=== PATIENT | male | born 1965 | race Caucasian/White ===

== ENCOUNTER → 2018-08-22 12:20 | Outpatient (CLI) | payer OTHER, MEDICAID, SELFPAY | PROVIDERS: Visit Provider Physician Assistant | DX: R68.89 Other general symptoms and signs (principal) | CPT/HCPCS: 87400 ==

== ENCOUNTER → 2020-09-22 12:46 | Outpatient (CLI) | payer OTHER, SELFPAY ==
[2020-09-22] MEDS: COVID-19 VACC #1, MRNA(MOD) 100 MCG/0.5 ML VIAL IM (12:57)
== END ==
PROVIDERS: Visit Provider Internal Medicine
DX: Z23 Encounter for immunization (principal)
CPT/HCPCS: 0011A; 91301

== ENCOUNTER → 2020-10-21 12:50 | Outpatient (CLI) | payer OTHER, SELFPAY ==
[2020-10-21] MEDS: COVID-19 VACC #2, MRNA(MOD) 100 MCG/0.5 ML VIAL IM (13:04)
== END ==
PROVIDERS: Visit Provider Internal Medicine
DX: Z23 Encounter for immunization (principal)
CPT/HCPCS: 0012A; 91301

== ENCOUNTER 2023-07-12 11:02 | Emergency (ER) | payer OTHER, SELFPAY ==
[2023-07-12] VITALS (12 sets, daily range): BP systolic 147–203; BP diastolic 92–127; PULSE 69–92; RESP 9–16; TEMP 36.9; O2SAT 97–99; BMI 30.9
--- NOTE | 2023-07-12 11:21 | DI.RAD.S_ITS ---
PROCEDURE: XR CHEST 1V INDICATIONS: chest pain TECHNIQUE: One view of the chest was acquired. COMPARISON: None. FINDINGS: Surgical changes and devices: None. Lungs and pleura: Lungs are clear. No pleural effusions or pneumothorax. Mediastinum: Mediastinal contours appear normal. Heart size is normal. Bones and chest wall: No suspicious bony lesions. Overlying soft tissues appear unremarkable. IMPRESSION: No acute cardiopulmonary abnormality is seen. Dictated by: Eugenie Fagan M.D. on 07/12/2023 at 11:50 Approved by: Eugenie Fagan M.D. on 07/12/2023 at 11:50
[2023-07-12 11:28] LABS: Add Manual Diff / Slide Review NO; Basophils Absolute Auto 0 /uL (0-100); Basophils Percent Auto 0.8 % (0-2); Eosinophils Absolute Auto 100 /uL (0-450); Eosinophils Percent Auto 1.1 % (2-4); Hematocrit 45.6 % (41-53); Hemoglobin 15.9 g/dL (13.5-17.5); Lymphocytes Absolute Auto 1100 /uL (1100-4500); Lymphocytes Percent Auto 19.9 % (25-40); Mean Corpuscular HGB Conc 34.8 % (30-36); Mean Corpuscular Hemoglobin 33.3 PG (26-34); Mean Corpuscular Volume 95.6 fL (80-100); Monocytes Absolute Auto 500 /uL (0-900); Monocytes Percent Auto 9.5 % (3-14); Neutrophils Absolute Auto 3700 /uL (1500-7000); Neutrophils Percent Auto 68.7 % (50-75); Platelet Count 238 X10^3/uL (150-400); Red Blood Cell Count 4.77 X10^6/uL (4.5-5.9); Red Cell Distribution Width 13.3 % (11.6-14.8); White Blood Cell Count 5.4 X10^3/uL (4.5-11.0)
[2023-07-12 11:35] LABS: Alanine Aminotransferase 31 IU/L (<50); Albumin 4.7 g/dL (3.5-5.0); Albumin Globulin Ratio 1.2 (1.0-2.8); Alkaline Phosphatase 83 U/L (38-126); Aspartate Aminotransferase 34 IU/L (17-59); BUN Creatinine Ratio 16.3 (6-22); Bilirubin Total 1.1 mg/dL (0.2-1.3); Blood Urea Nitrogen 14 mg/dL (9-20); Calcium 9.9 mg/dL (8.4-10.2); Carbon Dioxide 29 mmol/L (22-32); Chloride 101 mmol/L (98-107); Creatine Kinase 57 U/L (55-170); Estimated Glomerular Filt Rate > 60 mL/min (>60); Glucose 112 mg/dL (70-100); HEMOLYSIS < 15 (0-50); Lipase 121 U/L (23-300); Magnesium 2.1 mg/dL (1.6-2.3); Potassium 4.2 mmol/L (3.4-5.1); Sodium 137 mmol/L (137-145); Total Protein 8.7 g/dL (6.3-8.2)
[2023-07-12 11:36] LABS: Prothrombin Time 10.9 SECONDS (9.4-12.5)
[2023-07-12 11:39] LABS: PTT Partial Thromboplastin Tim 29 SECONDS (25.1-36.5)
[2023-07-12] MEDS: ASPIRIN 81 MG CHEW TAB 324 MG PO (11:39)
[2023-07-12 11:46] LABS: Troponin I < 0.012 ng/mL (0.01-0.034)
--- NOTE | 2023-07-12 11:51 | PC.NURSE ---
Pt reports he needs to establish care with PCP. Called down to [facility] and was able to secure f/u appt and appt to establish care with Dr Torres at 1300 at [facility] tomorrow 07/13/23.
--- NOTE | 2023-07-12 12:32 | ED_ITS ---
HPI - Chest Pain General Chief Complaint: Chest Pain Stated Complaint: High BP/arm pain/chest pain sent by walk in clinic Time Seen by Provider: 07/12/23 12:32 Source: patient, RN notes reviewed and old records reviewed Mode of arrival: Ambulatory Limitations: no limitations History of Present Illness HPI narrative: 58-year-old male with untreated hypertension daily alcohol use who presents with complaint of left-sided chest and arm discomfort occasionally. States he is felt fatigued over the last day. States symptoms have been in the last 24 hours sort of intermittent states it seems to be more exacerbated by stressful moments he does not notice any change with activity. He states he typically walks 3-6 miles a day most days. He states no diaphoresis no nausea, no shortness of breath, no new swelling of extremities, no numbness, tingling or weakness. No neck or back pain reported. No constipation or diarrhea in the last few days. Patient states no urinary symptoms. No swelling redness or other changes. He has been told he is hypertensive on multiple visits with his technical planner, he states it is always high on blood pressure checks they do in the office. He states he has been told that he did not have any changes in his eyes. He bought a blood pressure cuff for the 03 of July and has been checking his blood pressure regularly and has been ranging 130s to 170s but most consistently 130- 150 with a diastolic of 9200. Heart rates have been 60s to 80s. He does not take any daily medications has not seen a physician in several years. Has had a prior vasectomy. Quit smoking tobacco at least 10 years ago, 2-3 alcoholic drinks daily, no recreational drugs other than marijuana. Family history dad had a CABG and VT 1st episode was not age 77, paternal uncle from an VT in his 70s. He has a sister who has insulin-dependent diabetes and thyroid issues, his mom from complications from insulin-dependent diabetes. Patient has had a primary care appointment scheduled for tomorrow with Dr. Torres. Related Data Previous Rx's Medication Instructions Recorded lisinopril 20 mg tablet 20 mg PO DAILY #30 tabs 07/12/23 Allergies Allergy/AdvReac Type Severity Reaction Status Date / Time No Known Drug Allergies Allergy Verified 07/12/23 10:43 Review of Systems Review of Systems ROS Unobtainable: All systems reviewed & are unremarkable except as noted in HPI and below Patient History Medical History Allergic rhinitis (2009) Squamous cell carcinoma (2011) Chickenpox (1995) Measles Mumps History of skin cancer (2011) Neoplasm of uncertain behavior of skin Surgical History S/P vasectomy (1993) Family History Father Cancer Mother Diabetes mellitus Alzheimer's disease Grandmother Heart disease Stroke Hyperlipidemia Hypertension Grandmother Diabetes mellitus Heart disease Dementia Social History Smoking Status: Former smoker Smoking Status: Former smoker Exam Narrative Exam Narrative: GENERAL: Alert and oriented x three, well-appearing male in mild distress HEENT: Head normocephalic, atraumatic, EOMI, pupils reactive, face symmetric, moist mucous membranes NECK: Supple, full range of motion CARDIOVASCULAR: Regular rate and rhythm without murmurs, rubs or gallops. No reproducible chest pain. No swelling upper and lower extremities. RESPIRATORY: Breath sounds equal bilaterally, no wheezes rales or rhonchi. ABDOMEN: Soft, nontender. Normoactive bowel sounds all 4 quadrants. No guarding or rebound, rigidity, no mass : No CVA tenderness EXTREMITIES: Normal range of motion, no clubbing or edema. Neurovascularly intact. No color changes or swelling. NEUROLOGICAL: Cranial nerves II through XII grossly intact. Moving all extremities SKIN: Warm, dry, no petechiae, no rashes or lesions. Initial Vital Signs Initial Vital Signs: Vital Signs Pulse Oximetry 99 07/12/23 11:07 Scores HEART Score Heart Score history: Moderately Suspicious Heart Score EKG: Normal Heart Score Age: 45-64 years old Heart Score risk factors: 1-2 risk factors Heart Score troponin: < or = to normal limit Heart Score Total: 3 Course Orders Ordered: ED Orders 07/12/23 11:15 Complete Blood Count AUTO DIFF Stat Comprehensive Metabolic Panel Stat Lipase Stat Magnesium Stat PTT Partial Thromboplastin Harish Stat Prothrombin Time INR Stat Troponin & CK Cardiac Panel Stat 07/12/23 11:18 EKG-12 Lead Stat 07/12/23 11:21 XR chest 1V Stat 07/12/23 14:07 Trop I [Troponin I] Stat 07/12/23 14:27 EKG-12 Lead Stat Discontinued Medications Aspirin (Aspirin 81 Mg Chew Tab) 324 mg PO NOW ONE Stop: 07/12/23 11:22 Last Admin: 07/12/23 11:39 Dose: 324 mg Documented By: CHIP Vital Signs Vital signs: Vital Signs - 8 hr 07/12/23 11:07 07/12/23 11:08 07/12/23 11:08 Temperature Pulse Rate 90 Respiratory Rate Blood Pressure 203/127 H Pulse Oximetry 99 99 Oxygen Delivery Method 07/12/23 11:18 07/12/23 11:30 07/12/23 11:41 Temperature 98.5 F Pulse Rate 92 H 80 Respiratory Rate 16 Blood Pressure 203/127 H 166/96 H Pulse Oximetry 97 98 Oxygen Delivery Method Room Air 07/12/23 11:41 07/12/23 12:00 07/12/23 12:00 Temperature Pulse Rate 92 H 75 Respiratory Rate 10 L 10 L Blood Pressure 149/101 H Pulse Oximetry 97 97 Oxygen Delivery Method 07/12/23 12:30 07/12/23 12:30 07/12/23 13:00 Temperature Pulse Rate 75 Respiratory Rate 15 Blood Pressure 147/94 H 155/99 H Pulse Oximetry 98 Oxygen Delivery Method 07/12/23 13:00 07/12/23 13:30 07/12/23 13:30 Temperature Pulse Rate 69 75 Respiratory Rate 11 L Blood Pressure 157/92 H Pulse Oximetry 99 98 Oxygen Delivery Method 07/12/23 14:00 07/12/23 14:00 07/12/23 14:30 Temperature Pulse Rate 72 69 Respiratory Rate 15 9 L Blood Pressure 167/102 H Pulse Oximetry 98 98 Oxygen Delivery Method 07/12/23 14:30 07/12/23 15:00 07/12/23 15:00 Temperature Pulse Rate 74 Respiratory Rate 10 L Blood Pressure 167/93 H 164/93 H Pulse Oximetry 97 Oxygen Delivery Method MDM - Chest Pain Lab Data 07/12/23 11:15 07/12/23 11:15 Labs: Lab Results 07/12/23 07/12/23 Range/Units 11:15 14:07 WBC 5.4 (4.5-11.0) X10^3/uL RBC 4.77 (4.5-5.9) X10^6/uL Hgb 15.9 (13.5-17.5) g/dL Hct 45.6 (41-53) % MCV 95.6 (80-100) fL MCH 33.3 (26-34) PG MCHC 34.8 (30-36) % RDW 13.3 (11.6-14.8) % Plt Count 238 (150-400) X10^3/uL Neut % (Auto) 68.7 (50-75) % Lymph % (Auto) 19.9 L (25-40) % [place] % (Auto) 9.5 (3-14) % Eos % (Auto) 1.1 L (2-4) % Baso % (Auto) 0.8 (0-2) % Neut # (Auto) 3700 (5599-7909) /uL Lymph # (Auto) 1100 (5047-4468) /uL [place] # (Auto) 500 (0-900) /uL Eos # (Auto) 100 (0-450) /uL Baso # (Auto) 0 (0-100) /uL PT 10.9 (9.4-12.5) SECONDS INR 1.0 (0.9-1.3) APTT 29 (25.1-36.5) SECONDS Sodium 137 (137-145) mmol/L Potassium 4.2 (3.4-5.1) mmol/L Chloride 101 (98-107) mmol/L Carbon Dioxide 29 (22-32) mmol/L BUN 14 (9-20) mg/dL Creatinine 0.86 (0.66-1.25) mg/dL Estimated GFR > 60 (>60) mL/min BUN/Creatinine Ratio 16.3 (6-22) Glucose 112 H (70-100) mg/dL Calcium 9.9 (8.4-10.2) mg/dL Magnesium 2.1 (1.6-2.3) mg/dL Total Bilirubin 1.1 (0.2-1.3) mg/dL AST 34 (17-59) IU/L ALT 31 (<50) IU/L Alkaline Phosphatase 83 (38-126) U/L Total Creatine Kinase 57 (55-170) U/L Troponin I < 0.012 < 0.012 (0.01-0.034) ng/mL Total Protein 8.7 H (6.3-8.2) g/dL Albumin 4.7 (3.5-5.0) g/dL Globulin 4.0 (1.7-4.1) g/dL Albumin/Globulin Ratio 1.2 (1.0-2.8) Lipase 121 (23-300) U/L Imaging Data Chest x-ray: Radiologist's Impression: [address] [address] XRay Report Signed Patient: Mook Flores Jr MR#: [id number] : 1965 Acct:[id number] Age/Sex: 58 / M Date of Service: 07/12/23 Loc: ED Accession Number: [id number] Procedure: XR chest 1V Ordering Provider: Suzie Valerio D.O. PROCEDURE: XR CHEST 1V INDICATIONS: chest pain TECHNIQUE: One view of the chest was acquired. COMPARISON: None. FINDINGS: Surgical changes and devices: None. Lungs and pleura: Lungs are clear. No pleural effusions or pneumothorax. Mediastinum: Mediastinal contours appear normal. Heart size is normal. Bones and chest wall: No suspicious bony lesions. Overlying soft tissues appear unremarkable. IMPRESSION: No acute cardiopulmonary abnormality is seen. Dictated by: Eugenie Fagan M.D. on 07/12/2023 at 11:50 Approved by: Eugenie Fagan M.D. on 07/12/2023 at 11:50 ECG Data Attestation: I personally reviewed and interpreted this ECG as follows: Prior ECG tracings: not available for review Interpretation: Sinus rhythm rate of 76 OK 138 QRS of 92 QTC 438. No prior for confirmation. EKG 2. Sinus rhythm rate of 69 OK 130, QRS of [address] elevation depression, V1 no has inverted T-wave in his upright V2 leads may have been flipped does not have contiguous changes. [facility] Narrative Medical decision making narrative: 58-year-old male who presents with complaint of left sided upper chest pain radiating down into his left arm. He is quite hypertensive upon arrival normalize in the 140 range during his stay. Patient has untreated hypertension has been told his blood pressure is elevated multiple visits with his technical planner has been checking at home runs 130s to 150s most consistently over the past 10 days he has been checking. Father and paternal uncle both had heart attacks in their 70s, has family history of insulin-dependent diabetes with mother and sister the patient does not. CBC, CMP, coags, troponin, LFTs show a glucose of 112 but no other major changes. Troponin is negative initially. Troponin was repeated and is negative. EKG shows no acute ST elevation or depression. No priors for comparison. Repeat EKG reviewed. Discussed with patient does not appear to be having acute coronary syndrome at this time but does have some risk factors. Discussed observation overnight for stress testing in the morning, he does have a follow up appointment tomorrow with primary care already scheduled. Patient prefers to return home has appointment tomorrow at 1pm with primary care. Discharge Plan Departure Patient Disposition: Home Clinical Impression: Chest pain Instructions: DI for Chest Pain Activity Restrictions/Additional Instructions: Follow up at your appointment tomorrow to discuss further workup and stress testing. I would recommend taking an aspirin 81mg daily until cleared by your physician, your next dose is tomorrow. You can take the enteric coated to protect your stomach. Talk with your physician about starting blood pressure medication. Please return for new or worsening chest, shortness of breath, lightheadedness or passing out, diaphoresis or sweatiness, nausea or vomiting, new swelling in your extremities or other new or concerning changes. Prescriptions: No Action lisinopril 20 mg tablet 20 mg PO DAILY Qty: 30 0RF Referrals: Miscellaneous,Doctor, [Primary Care Provider] - Aziza Torres DO [Physician] - Stand Alone Forms: Patient Portal/API
[2023-07-12 14:58] LABS: Troponin I < 0.012 ng/mL (0.01-0.034)
== END 2023-07-12 15:17 | disposition home or self-care (01) ==
PROVIDERS: Emergency Provider Emergency Medicine
DX: R07.9 Chest pain, unspecified (principal)
CPT/HCPCS: 36415; 71045; 80053; 82550; 83690; 83735; 84484; 85025; 85610; 85730; 93005; 93010; 99284

== ENCOUNTER → 2023-07-25 09:45 | Outpatient (CLI) | payer OTHER, SELFPAY ==
[2023-07-25 11:59] LABS: Hemoglobin A1C% w Est Avg Glu 5.3 % (4.0-6.0)
[2023-07-25 12:08] LABS: Cholesterol 227 mg/dL (140-199); HDL Cholesterol 62 mg/dL (40-60); LDL Cholesterol Calculated 146 mg/dL (<100); Triglycerides 93 mg/dL (35-150)
[2023-07-25 12:10] LABS: BUN Creatinine Ratio 14.5 (6-22); Blood Urea Nitrogen 11 mg/dL (9-20); Calcium 9.6 mg/dL (8.4-10.2); Carbon Dioxide 30 mmol/L (22-32); Chloride 99 mmol/L (98-107); Estimated Glomerular Filt Rate > 60 mL/min (>60); Glucose 98 mg/dL (70-100); HEMOLYSIS < 15 (0-50); Potassium 4.5 mmol/L (3.4-5.1); Sodium 135 mmol/L (137-145)
[2023-07-25 12:30] LABS: Prostate Specific Antigen Scrn 1.08 ng/mL (0.1-4.0)
[2023-07-25 12:31] LABS: TSH w/ Reflex to FT4 1.48 uIU/mL (0.47-4.68)
== END ==
LOC: LAB 09:47
PROVIDERS: Physician Assistant; PCP Family Medicine; Referring Provider Family Medicine; Visit Provider Family Medicine
DX: I10 Essential (primary) hypertension (principal); Z12.5 Encounter for screening for malignant neoplasm of prostate
CPT/HCPCS: 36415; 80048; 80061; 83036; 84443; G0103

== ENCOUNTER → 2023-08-02 14:54 | Outpatient (CLI) | payer OTHER, SELFPAY ==
--- NOTE | 2023-08-02 14:55 | DI.CT.S_ITS ---
PROCEDURE: CT LUNG LOW DOSE SCREENING INDICATIONS: 30 pack year hx; quit 10 years ago TECHNIQUE: Noncontrast 2.0-2.5 mm thick sections acquired from the pulmonary apices to the posterior costophrenic angles. 7 mm thick axial MIP, and 5 mm coronal and sagittal reformats were then acquired. For radiation dose reduction, the following was used: automated exposure control, adjustment of mA and/or kV according to patient size. COMPARISON: None. FINDINGS: Image quality: Diagnostic. Lower Neck: No enlarged lymph nodes. Thyroid: No thyroid nodules which require sonographic follow up, per consensus guidelines. Axillae: No enlarged lymph nodes. Chest Wall: Unremarkable. Bones: Unremarkable. Lungs and Pleura: No pneumothorax or pleural effusions. No consolidation or suspicious nodules. Solid calcified 5 mm nodule in the right middle lobe (128/3) Solid calcified 4 mm nodule in the right lower lobe (134/3) 3 mm solid nodule in the left lower lobe (153/3) Heart: Heart size is normal. No pericardial effusion. Thoracic Vessels: The aorta and pulmonary arteries demonstrate normal size. Mediastinum and [place]: No enlarged lymph nodes. Esophagus: No wall thickening. No hiatal hernia. Upper Abdomen: 2 hypodensities, larger one 1.9 cm in the left lobe of the liver likely simple cys but evaluation with no IV contrast is limited. Diverticulosis of the colon. IMPRESSION: LUNG-RADS 2 benign; continued annual screening, if eligible. Clinically Significant Non-pulmonary Findings: Diverticulosis of the colon Dictated by: Wilder Dhaliwal M.D. on 08/02/2023 at 16:24 Approved by: Wilder Dhaliwal M.D. on 08/02/2023 at 16:33
== END ==
PROVIDERS: PCP Family Medicine; Referring Provider Family Medicine; Visit Provider Family Medicine
DX: Z12.2 Encounter for screening for malignant neoplasm of respiratory organs (principal); Z87.891 Personal history of nicotine dependence; R91.8 Other nonspecific abnormal finding of lung field; K57.90 Diverticulosis of intestine, part unspecified, without perforation or abscess without bleeding
CPT/HCPCS: 71271

== ENCOUNTER 2023-11-23 08:23 | Day surgery (SDC) | payer OTHER, SELFPAY ==
--- NOTE | 2023-11-23 | PATH_ITS ---
[facility] Accession Number: [id number] No. of containers..01 Tissue . 01 Material submitted: . colon - ASCENDING POLYP . 01 Diagnosis: ASCENDING COLON POLYP: Tubular adenoma. MRV 11/29/2023 1638 Local . 01 Electronically signed: . Manfred Juarez MD, PhD, Pathologist NPI- [id number] . 01 Gross description: . ASCENDING POLYP: Received in formalin is 1 fragment(s) of hooker, soft tissue measuring 0.5 x 0.3 x 0.3 cm submitted entirely in 1 cassette(s) /JAYMIE 11/28/2023 1752 Local . 01 Pathologist provided ICD-10: D12.2 . 01 CPT . 490793 Specimen Comment: A courtesy copy of this report has been sent to [phone] Performed at: [address] [facility] [id number] MD René Martines MD Phone: [phone]
[2023-11-23 08:51] VITALS: BP 142/92; PULSE 74; RESP 16; TEMP 36.3; O2SAT 99
[2023-11-23] MEDS: LACTATED RINGERS 1,000 ML 42 ML IV (09:01)
--- NOTE | 2023-11-23 09:16 | PM.HP.1 ---
History of Present Illness History of Present Illness Date Patient Seen: 11/23/23 Time Patient Seen: 09:16 Chief complaint: SDC Narrative: Mook is a 58-year-old and here for colonoscopy. He has never had 1 before. He does not have any first-degree relatives with colon cancer. [facility], [facility] Medical History Allergic rhinitis (2009) Squamous cell carcinoma (2011) Chickenpox (1995) Measles Mumps History of skin cancer (2011) Neoplasm of uncertain behavior of skin Surgical History S/P vasectomy (1993) Family History Father Cancer Mother Diabetes mellitus Alzheimer's disease Grandmother Heart disease Stroke Hyperlipidemia Hypertension Grandmother Diabetes mellitus Heart disease Dementia Social History Smoking Status: Former smoker alcohol intake: current Meds Home Medications and Allergies Home Medications Medication Instructions Recorded Confirmed Type aspirin 81 mg chewable tablet 81 mg PO DAILY 07/13/23 11/23/23 History ketoconazole 2 % topical cream 1 applic topical DAILY #30 grams 07/13/23 11/23/23 Rx lisinopril 20 mg tablet 20 mg PO DAILY #90 tabs 10/02/23 11/23/23 Rx peg 3350-sod sulf,rhfmd-tct-pnb 1,000 ml PO DIRECTED #2,000 mL 11/06/23 Rx 178.7-7.3-0.5-1.12-0.9 gram oral soln (Suflave) cetirizine 10 mg capsule (Zyrtec) 10 mg PO DAILY PRN Allergy Symptoms 11/23/23 11/23/23 History fluticasone propionate 50 1 spray intranasal DAILY 11/23/23 11/23/23 History mcg/actuation nasal spray,suspension Allergies Allergy/AdvReac Type Severity Reaction Status Date / Time No Known Drug Allergies Allergy Verified 11/23/23 08:42 Exam Vital Signs (past 8 hours): - 11/23/23 08:51 Temperature 97.3 F L Pulse Rate 74 Respiratory Rate 16 Blood Pressure 142/92 H Pulse Oximetry 99 Oxygen Delivery Method Room Air Oxygen Delivery Method Room Air Const General: healthy appearing and No acute distress Resp Effort & Inspection: normal respiratory effort Assessment & Plan Assessment and plan (1) Colon cancer screening: Status: Acute Plan We reviewed the risks and benefits of colonoscopy for colon cancer screening and he would like to proceed.
[2023-11-23 09:47] VITALS: BP 89/62; PULSE 72; RESP 16; TEMP 36.1; O2SAT 97
--- NOTE | 2023-11-23 09:50 | PM.OP.COLON ---
Operative Date/Time/Diagnoses Date of procedure: 11/23/23 Time of procedure: 09:50 Pre-op diagnosis: Colon cancer screening Post-op diagnosis: same Procedure & Clinicians Study performed: Colonoscopy Same procedure as scheduled: Yes Surgeon: Tobin Villegas Procedure Notes Procedure in detail: Surgeon: Tobin Villegas MD Anesthesia: María Nation MD Procedure: The patient was brought to the endoscopy suite, placed in left lateral decubitus position. The patient was connected to monitoring devices. A time-out was performed. Sedation was administered. Once the patient was adequately sedated, a digital rectal exam was performed and was normal. The scope was then inserted and advanced to the cecum where the appendiceal orifice was identified and photographed. The scope was then slowly withdrawn over greater than 6 minutes. The mucosa was thoroughly inspected. There was a 5 mm sessile polyp in the ascending colon removed with a cold snare. The scope was retroflexed in the rectum. No other abnormalities were noted. The scope was straightened and removed. The patient was awakened and brought to recovery. Scope withdrawal time: 8 minutes Sedation time: 12 minutes EBL: 2 mL Findings: 5 mm ascending colon polyp Post-procedure Disposition: PACU
[2023-11-23 09:52] VITALS: BP 103/72; PULSE 68; RESP 16; O2SAT 98
[2023-11-23 09:57] VITALS: BP 115/79; PULSE 68; RESP 16; O2SAT 99
== END 2023-11-23 10:08 | disposition home or self-care (01) ==
PROVIDERS: PCP Family Medicine; Referring Provider Surgery; Visit Provider Surgery
PROC: 0DJD8ZZ Inspection of Lower Intestinal Tract, Via Natural or Artificial Opening Endoscopic (ICD-10-PCS; CPT 45378; principal; 2023-11-23 09:15)
DX: Z12.11 Encounter for screening for malignant neoplasm of colon (principal); D12.2 Benign neoplasm of ascending colon
CPT/HCPCS: 45385; J2704

== ENCOUNTER → 2023-12-08 09:02 | Outpatient (CLI) | payer OTHER, SELFPAY ==
[2023-12-08 10:14] LABS: Cholesterol 206 mg/dL (140-199); HDL Cholesterol 53 mg/dL (40-60); LDL Cholesterol Calculated 133 mg/dL (<100); Triglycerides 100 mg/dL (35-150)
== END ==
LOC: LAB 09:03
PROVIDERS: PCP Family Medicine; Referring Provider Family Medicine; Visit Provider Family Medicine
DX: E78.00 Pure hypercholesterolemia, unspecified (principal)
CPT/HCPCS: 36415; 80061